=== PATIENT | male | born 1995 | race Caucasian/White ===

== ENCOUNTER 2022-10-25 16:09 | Emergency (ER) | payer BC ==
[~2022-10-25] VITALS: Ht 188 cm; Wt 77.1 kg
[2022-10-25] MEDS ORDERED: OLANZAPINE 5 MG TABLET ONE (17:18)
[2022-10-25] MEDS ORDERED: OLANZAPINE ZYDIS 5 MG TAB.RAPDIS PO ONE (17:30)
[2022-10-25] MEDS ORDERED: HALOPERIDOL LACTATE INJ 5 MG/ML VIAL IM ONE (18:00)
[2022-10-25] MEDS ORDERED: diphenhydrAMINE HCL 50 MG/ML VIAL IM ONE (18:00)
[2022-10-25] MEDS ORDERED: LORAZEPAM INJ 2 MG/ML VIAL IM ONE (18:00)
[2022-10-25] MEDS ORDERED: HALOPERIDOL LACTATE INJ 5 MG/ML VIAL ONE (18:30)
[2022-10-25] MEDS ORDERED: diphenhydrAMINE HCL 50 MG/ML VIAL ONE (18:30)
--- NOTE | 2022-10-25 18:30 | NUR ---
URINE SPECIMEN COLLECTED, TIMED AND INITIALED. SENT TO LAB.
[2022-10-25] MEDS ORDERED: LORAZEPAM INJ 2 MG/ML VIAL ONE (18:31)
[2022-10-25 19:11] LABS: BILIRUBIN,URINE 1+ (NEGATIVE); COLOR,URINE YELLOW (YELLOW); LEUKOCYTE ESTERASE ,URINE NEGATIVE (NEGATIVE); NITRITE, URINE NEGATIVE (NEGATIVE); PH,URINE 5.5 (5.0-8.0); PROTEIN,URINE NEGATIVE (NEGATIVE); UGLUCOSE NEGATIVE (NEGATIVE)
[2022-10-25 19:33] LABS: ALANINE AMINOTRANSFERASE 36 U/L (12-78); ALBUMIN 4.4 g/dL (3.4-5.0); ALKALINE PHOSPHATASE 97 U/L (46-116); ASPARTATE AMINOTRANSFERASE 49 U/L (15-37); BILIRUBIN,DIRECT 0.3 mg/dL (0.0-0.2); BILIRUBIN,TOTAL 1.4 mg/dL (0.2-1.0); CALCIUM, SERUM 9.7 mg/dL (8.5-10.1); CARBON DIOXIDE 23 mmol/L (21-32); CHLORIDE 102 mmol/L (98-107); CREATININE 1.1 mg/dL (0.6-1.3); GLUCOSE 93 mg/dL (74-106); POTASSIUM 3.6 mmol/L (3.5-5.1); SODIUM SERUM 141 mmol/L (136-145); TOTAL PROTEIN, SERUM 8.2 g/dL (6.4-8.2); UREA NITROGEN, BLOOD 16 mg/dL (7-18)
[2022-10-25 19:40] LABS: ACETAMINOPHEN < 10 ug/ml (10-30); ALCOHOL, BLOOD < 3 mg/dL (0-0)
[2022-10-25 20:14] LABS: BACTERIA,URINE None seen /HPF (None Seen); MUCUS,URINE Few /LPF (None Seen); SQUAMOUS EPITHELIAL CELL,UR 0-2 /HPF (None Seen); WBC,URINE 0-2 /HPF (0-3)
[2022-10-25 20:41] LABS: BASOPHILS # (AUTO) 0.1 K/uL (0.0-0.2); BASOPHILS % (AUTO) 0.5 % (0.0-2.0); HEMATOCRIT 44 % (39-51); HEMOGLOBIN 14.3 g/dL (13.5-17.5); LYMPHOCYTES # (AUTO) 2.9 K/uL (0.8-4.8); LYMPHOCYTES % (AUTO) 18.6 % (20.0-44.0); MEAN CORPUSCULAR HGB CONC 33 g/dl (31.0-36.0); MEAN CORPUSCULAR VOLUME 77 fL (80-96); MONOCYTES # (AUTO) 1.8 K/uL (0.1-1.30); MONOCYTES % (AUTO) 11.7 % (2.0-12.0); NEUTROPHILS # (AUTO) 10.8 K/uL (1.8-8.9); NEUTROPHILS % (AUTO) 69.2 % (43.0-81.0); PLATELET COUNT (AUTO) 379 K/uL (150-450); RED BLOOD CELL COUNT(AUTO) 5.67 MIL/uL (4.5-6.0); WHITE BLOOD COUNT (AUTO) 15.6 K/uL (4.3-11.0)
--- NOTE | 2022-10-26 07:40 | NUR ---
PT APPEARS TO BE SLEEPING COMFORTABLY IN BED, NOT IN ACUTE DISTRESS, BREATHING EVEN AND UNLABORED. CONNECTED TO MONITOR. VSS. SAFETY MEASURES IN PLACE.
--- NOTE | 2022-10-26 09:36 | NUR ---
PT STILL ASLEEP, NO SIGNIFICANT CHANGE FROM PREVIOUS ASSESSMENT.
--- NOTE | 2022-10-26 14:26 | NUR ---
JEM AT BEDSIDE.
--- NOTE | 2022-10-26 14:49 | NUR ---
SS Note: SW met with pt. at bedside to comple biopsychosocial assessment. The pt. is alert & oriented x 3 and states he is not sure why he was brought to the hospital. The pt. is disheveled, with loud speech, responding to internal stimuli and irritable mood and affect. The pt. states he has a HX. of Bipolar disorder and could not state when was the last time he took lithium. Pt. states he is from [place] and came to [place] to live with a friend but could not provide friends phone number or address for safe discharge. SW consulted with SS Director, Nhi Brice for plan of care and she recommended further stabilization with medication support. SW discussed with Bárbara BRUMFIELD that he may call psychiatrist, Dr. Banks to consult about appropriate psychiatric medications to stabilize pt. SW provided pt. with homeless resources and pt. refused to sign hoemeless waiver which was placed in the pt.'s chart. Winter Chcf list : [facility]; AB Adult WSP site; DONNY Adult WSP site; and [facility]FD Adult WSP site; instruction to call 211 for availability. Year-round shelters: [facility] [address] [place], [place] [phone] ; [place] [facility] [address] [place] [address]; [facility] [facility] Jvltywk7368 [facility]. [facility] [address] Hygiene: [facility]: [address] [place] ; [facility] [address] [facility] ; [facility] [address] . Food Resources: [place] [facility] at [facility]- [address] [place]; Meet Each Need with Dignity ([facility]) [address] [place]; [facility] [address] [facility]; [facility] [address] [place] [address] [place]. Mental Health resources provided: [facility] [address] [place] [address] ; [facility] [employer] [address], [place] [address] ; [place] [address] [address] [place] [address] ; [facility] [address] [place], [place] [phone] Healthcare Clinics: [facility] [address] [facility], [address] [place]. [place] ; [facility] [address] [facility] [address] [place] [address]; [facility] [address] [facility] [place] [address] [phone] Counseling--Outpatient [facility] [address] [facility] [address], [place] [address] (Specializes in in-depth psychotherapy for emotional distress: anxiety, depression, interpersonal conflicts, life transitions, childhood abuse) [facility] [address] [place] [address] (Assist with solving problem marital difficulties, separation & divorce, aging parents, & grief, chronic & terminal illness) [facility] [address] [place] [address] (Deal with loss & grief, anxiety, marital difficulties) Homebound/Mental Health Services [address], [address] [place] [address] (Provide in-home mental services to people who are incapable of leaving their homes) [facility] Elder[facility] Senior Service/Resource Center [address] [place] [address] [facility] [address] [facility] [place] [address] PSYCHIATRIC OUTPATIENT SERVICES [facility] Partial Hospitalization and Intensive Outpatient Program (Managed Care and [place] Only)[address] [facility] [phone] [facility] Partial Hospitalization and Outpatient Aaypnet[address] [facility]. [address] [place], [place] [phone] [facility] Onk[address] [facility]. [address] [place], [place] [phone] [facility] Partial Hospitalization and Outpatient [id number] Roberta Evans, [phone] Substance Abuse resources provided included: [facility] Substance Abuse Self-Helpline ([facility]) ; [facility] [address] [facility]. [place] [address] ; [facility] [address] [facility] [address] ; [facility] [address] [facility] [phone] ; [facility] [address] [facility] [phone] ; [facility] [address] [facility] [address] ; [facility] [address] [facility] [phone] ; [facility] Substance Abuse Helpline([facility] ; [facility] ; [facility] [place]; [facility]; [facility] [place]; [facility] [place]; [place] [facility]; [place] [facility]; [place] [facility]; [facility] [employer] [place]; Alcoholics Anonymous -SFV; Zp-Oqku-Oiyqprd ; Marijuana Anonymous [facility]; Narcotics Anonymous www.na.org;
[2022-10-26] MEDS ORDERED: QUETIAPINE FUMARATE 100 MG TABLET PO SCH (16:00)
[2022-10-26] MEDS ORDERED: LITHIUM CARBONATE (300 MG CAP) 300 MG CAPSULE PO SCH (16:30)
--- NOTE | 2022-10-26 16:35 | NUR ---
patient refused the olanzapine and lithium carbonate , explains the benefits of the medications but still refused. will try again later. care plan continues.
[2022-10-26] MEDS ORDERED: OLANZAPINE ZYDIS 5 MG TAB.RAPDIS PO SCH (17:00)
[2022-10-26] MEDS ORDERED: LITHIUM CARBONATE (300 MG CAP) 300 MG CAPSULE ONE (17:28)
[2022-10-26] MEDS ORDERED: OLANZAPINE ZYDIS 5 MG TAB.RAPDIS ONE (17:29)
--- NOTE | 2022-10-26 18:20 | NUR ---
patient still refusing to take the due medication . md made aware . will return the meds. care continues
--- NOTE | 2022-10-26 19:45 | NUR ---
PT LAYING QUIETLY IN BED
--- NOTE | 2022-10-26 21:30 | NUR ---
Patient is resting comfortably in bed with eyes closed. Easily aroused. VSS
--- NOTE | 2022-10-27 02:33 | NUR ---
PT SLEEPING, VSS, EASILY AROUSABLE
--- NOTE | 2022-10-27 04:26 | NUR ---
Patient is resting comfortably in bed with eyes closed. Easily aroused. VSS
[2022-10-27] MEDS ORDERED: OLANZAPINE ZYDIS 5 MG TAB.RAPDIS ONE (10:22)
[2022-10-27] MEDS ORDERED: OLANZAPINE 5 MG TABLET PO ONE (10:30)
--- NOTE | 2022-10-27 13:03 | NUR ---
SS Referral: IVY faxed clincals to for placement: [facility] FAX: [phone] TEL:[phone], [facility] TEL: [phone] fax: [phone] [facility] FAX: [phone] TEL: [phone] Addendum: 10/27/22 at 1409 by ADRIANA [facility] Faxed to another fax ([phone])
--- NOTE | 2022-10-27 14:16 | NUR ---
call from jose maria apodaca, accepted at [facility]
--- NOTE | 2022-10-27 14:18 | NUR ---
call from [facility] L[facility]W will also call us for clinicals
--- NOTE | 2022-10-27 14:19 | NUR ---
SS Note: SW received a call from [facility]- and notified [facility] wants clinicals from nurse ([phone]). SW received a call from [facility] [phone] wanting clincals spoke with Fozia.
--- NOTE | 2022-10-27 14:27 | NUR ---
PT ACCEPTED TO [facility] UNDER THE CARE OF DR. BERNARD NUMBER FOR REPORT [phone] AWAITING A CALL BACK FOR ETA OF TRANSPORT
--- NOTE | 2022-10-27 14:31 | NUR ---
[facility]: ACCEPTED AT [facility]. ACCEPTED BY ABHIJIT FROM INTAKE ([phone]). ABHIJIT WILL COORDINATE TRANSPORTATION. ASSIGNED DOCTOR WILL BE DR. BERNARD. UNIT: ITU AT ([phone]). Addendum: 10/27/22 at 1442 by ADRIANA Transportation: [facility] intake ([phone]) coordinated transportation at 4:45PM for warehouse picker. SW notified ER staff.
--- NOTE | 2022-10-27 15:08 | NUR ---
Transportation: Transportation for Bed [address] Shivani Marcelo ([phone]) stated transportation will be around 4:45PM and have coordinated transportation.
[2022-10-27 16:40] VITALS: BP 129/77
--- NOTE | 2022-10-27 17:36 | NUR ---
REPORT GIVEN TO EMT TRANSPORT FOR HEATHER
--- NOTE | 2022-10-27 17:49 | NUR ---
REPORT GIVEN TO RECEIVING PSHYCHIATRIC NURSE IN [facility].
== END 2022-10-27 18:15 ==
LOC: ER 16:13
DX: F23 Brief psychotic disorder (principal); F31.9 Bipolar disorder, unspecified; Z20.822 Contact with and (suspected) exposure to COVID-19; Z59.00 Homelessness unspecified
CPT/HCPCS: 99285; 96372 ×2; 85025; 80048; 80076; 81001; 36415; 87426; 80143; 80320; 80307; J2060; J1200; J1630; C9803; G0480